=== PATIENT | male | born 1945 | race Caucasian/White ===

== ENCOUNTER → 2021-01-19 | Outpatient (CLI) | payer MEDICARE, OTHER ==
--- NOTE | 2021-01-19 13:58 | REPPI ---
INDICATION: N20.0 KIDNEY STONE COMPARISON: None. TECHNIQUE: Two supine views of the abdomen and pelvis. FINDINGS: Irregular calcifications in the right upper quadrant and 1 cm calcification overlying the sacrum are nonspecific although nephroureterolithiasis cannot be excluded. Bowel gas pattern is nonspecific. Skeletal structures demonstrate age-related degenerative changes. Few scattered surgical clips noted in the left mid abdomen and right lower quadrant. IMPRESSION: 1. Nephroureterolithiasis and or cholelithiasis cannot be excluded. <Electronically signed by Hal Pepe > 01/19/21 [id number]
== END ==
LOC: M PLAIMG 13:11
PROVIDERS: ATTEND Nurse Practitioner Family
DX: N20.0 Calculus of kidney (principal)
CPT/HCPCS: 74018; G0463